=== PATIENT | male | born 1990 | race Caucasian/White ===

== ENCOUNTER 2019-10-03 20:41 | Emergency (ER) | payer MEDICAID ==
[~2019-10-03] VITALS: Ht 180.3 cm; Wt 61.0 kg
[2019-10-03 21:11] VITALS: BP 107/68
[2019-10-03] MEDS ORDERED: KETOROLAC 30MG/ML VIAL IM ONE (21:15)
== END 2019-10-04 00:47 | disposition home or self-care (01) ==
LOC: ER 20:41
DX: S39.012A Strain of muscle, fascia and tendon of lower back, initial encounter (principal); V43.62XA Car passenger injured in collision with other type car in traffic accident, initial encounter; Y93.89 Activity, other specified; Y92.488 Other paved roadways as the place of occurrence of the external cause
CPT/HCPCS: 72131; 96372; 99284; J1885